=== PATIENT | male | born 1990 | race Hispanic/Latino ===

== ENCOUNTER 2024-07-04 11:51 | Emergency (ER) | payer BC, OTHER ==
[~2024-07-04] VITALS: Ht 170.2 cm; Wt 104.3 kg
[~2024-07-04 11:51] MED LIST: CEPHALEXIN500 MG PO; CLEOCIN HCL300 MG PO; PANTOPRAZOLE SO40 MG PO
[2024-07-04 12:02] VITALS: TEMP 98
[2024-07-04] MEDS: PREDNISONE 20 MG TAB PO ONE (12:48)
[2024-07-04] MEDS: KETOROLAC TROMETHAMINE 60 MG/2 ML VIAL IM ONE (12:48)
[2024-07-04] MEDS ORDERED: PREDNISONE50 MG PO (14:42)
[2024-07-04] MEDS ORDERED: CYCLOBENZAPRINE10 MG PO (14:43)
[2024-07-04] MEDS ORDERED: NAPROSYN500 MG PO (14:44)
[2024-07-04 14:49] VITALS: PULSE 64; RESP 15
[2024-07-04 15:10] VITALS: BP 130/90; O2SAT 95
== END 2024-07-04 15:11 | disposition home or self-care (01) ==
LOC: FSED 12:06
DX: S39.012A Strain of muscle, fascia and tendon of lower back, initial encounter (principal); M54.16 Radiculopathy, lumbar region; X50.1XXA Overexertion from prolonged static or awkward postures, initial encounter; Y92.89 Other specified places as the place of occurrence of the external cause
CPT/HCPCS: 72131; 99283; J1885; J7512

== ENCOUNTER 2025-03-21 10:11 | Emergency (ER) | payer SELFPAY ==
[~2025-03-21] VITALS: Ht 170.2 cm; Wt 98.6 kg
[~2025-03-21 10:11] MED LIST changes: +CYCLOBENZAPRINE10 MG PO; +NAPROSYN500 MG PO; +PREDNISONE50 MG PO
[2025-03-21] MEDS: KETOROLAC TROMETHAMINE 30 MG/ML VIAL IM STA (10:49)
[2025-03-21 11:24] VITALS: PULSE 62; RESP 16; TEMP 98.1; O2SAT 98
== END 2025-03-21 11:35 | disposition home or self-care (01) ==
LOC: FSED 10:14
DX: R07.89 Other chest pain (principal); S20.211A Contusion of right front wall of thorax, initial encounter; S29.011A Strain of muscle and tendon of front wall of thorax, initial encounter; X50.1XXA Overexertion from prolonged static or awkward postures, initial encounter; Y92.89 Other specified places as the place of occurrence of the external cause; F17.210 Nicotine dependence, cigarettes, uncomplicated
CPT/HCPCS: 71046; 93005; 96372; 99283; J1885